=== PATIENT | female | born 1955 | race Caucasian/White ===

== ENCOUNTER 2023-01-24 17:02 | Emergency (ER) | payer OTHER ==
--- NOTE | 2023-01-24 18:25 | ED ---
General Adult HPI - General Source: RN notes reviewed <Rachel Moreira - Last Filed: 01/24/23 18:23> <Adrien Barahona - Last Filed: 01/25/23 00:51> - General Stated complaint: Rectal Bleeding Time Seen by Provider: 01/24/23 18:23 - History of Present Illness Initial comments: 67 year old female presents to the emergency department with a chief complaint of LLQ abdominal pain with sudden onset today. Also reports to "blood in her rectal area." Denies anticoagulant use (Rachel Moreira) Dictation was produced using [employer] dictation software. please excuse any grammatical, word or spelling errors. Chief Complaint: 67-year-old female with history of hypertension COPD presents the ER for left lower quadrant abdominal pain History of Present Illness: Patient is 67-year-old female she has no significant comorbidities she has history of appendectomy. Patient is currently a resident at [facility] detox facility. 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 Patient has been having left lower quadrant abdominal pain for the last 4 days. She thought her symptoms were secondary to constipation. She had a bowel movement today however still having some symptoms. She did report to someone that she had some GI bleeding. She is not on anticoagulation medications. She denies that her stool was melanotic, red. She did feel that her stool. Dark however she did not say that it was black. Denies any lightheadedness. No fever constitutional symptoms. The ROS documented in this emergency department record has been reviewed and confirmed by me. Those systems with pertinent positive or negative responses have been documented in the HPI. All other systems are other negative and/or noncontributory. (Adrien Barahona) - Related Data Home Medications Medication Instructions Recorded Confirmed Acetaminophen [Tylenol] 650 mg PO Q4H PRN 01/24/23 01/24/23 Albuterol Nebulized [Ventolin 2.5 mg INHALATION RT-Q4H PRN 01/24/23 01/24/23 Nebulized] Atorvastatin [Lipitor] 80 mg PO DAILY@1700 01/24/23 01/24/23 Azithromycin [Zithromax Z Pack] See Taper PO DIRECTED 01/24/23 01/24/23 Buprenorphine/Naloxone 8Mg/2Mg 1 film SL BID 01/24/23 01/24/23 [Suboxone 8-2Mg Film] Gabapentin 1,200 mg PO BID 01/24/23 01/24/23 Ibuprofen [Motrin Ib] 600 mg PO Q6H PRN 01/24/23 01/24/23 Lactulose 10 - 20 gm PO BID PRN 01/24/23 01/24/23 Losartan Potassium [Cozaar] 100 mg PO DAILY 01/24/23 01/24/23 Melatonin 5 mg PO HS 01/24/23 01/24/23 Umeclidinium [place] [Incruse 1 puff INHALATION RT-DAILY 01/24/23 01/24/23 Ellipta] amLODIPine [Norvasc] 5 mg PO DAILY 01/24/23 01/24/23 buPROPion HCL [buPROPion HCL SR] 150 mg PO Q12HR 01/24/23 01/24/23 predniSONE See Taper PO DIRECTED 01/24/23 01/24/23 Allergies Allergy/AdvReac Type Severity Reaction Status Date / Time No Known Allergies Allergy Verified 01/24/23 22:35 Review of Systems ROS Other: All systems not noted in ROS Statement are negative. <Rachel Moreira - Last Filed: 01/24/23 18:23> ROS Other: All systems not noted in ROS Statement are negative. <Adrien Barahona - Last Filed: 01/25/23 00:51> ROS Statement: Those systems with pertinent positive or pertinent negative responses have been documented in the HPI. General Exam <Rachel Moreira - Last Filed: 01/24/23 18:23> <Adrien Barahona - Last Filed: 01/25/23 00:51> - General Exam Comments Initial Comments: Visual Physical Exam Vital signs reviewed General: Well-appearing, nontoxic, no acute distress. Head: Normocephalic, atraumatic Eyes: PERRLA, EOMI ENT: Airway patent Chest: Nonlabored breathing Skin: No visual rash, normal skin tone Neuro: Alert and oriented 3 Musculoskeletal: No gross abnormalities I performed the quick note portion of this exam, verbal signature Rachel Moreira PA-C (Rachel Moreira) PHYSICAL EXAM: General Impression: Alert and oriented x3, not in acute distress HEENT: Normocephalic atraumatic, extra-ocular movements intact, pupils equal and reactive to light bilaterally, mucous membranes moist. Cardiovascular: Heart regular rate and rhythm Chest: Able to complete full sentences, no retractions, no tachypnea Abdomen: abdomen soft, mild palpatory tenderness to the left lower quadrant, non-distended, no organomegaly Musculoskeletal: Pulses present and equal in all extremities, no peripheral edema Motor: no focal deficits noted Neurological: CN II-XII grossly intact, no focal motor or sensory deficits noted Skin: Intact with no visualized rashes Psych: Normal affect and mood Rectal exam: Refused (Adrien Barahona) Course Vital Signs 01/24/23 18:23 Temperature 98.2 F Pulse Rate 73 Respiratory 20 Rate Blood Pressure 148/83 O2 Sat by Pulse 97 Oximetry Medical Decision Making - Lab Data Result diagrams: 01/24/23 21:10 01/24/23 21:10 <Adrien Barahona - Last Filed: 01/25/23 00:51> - Medical Decision Making Was pt. sent in by a medical professional or institution (, PA, BUILDING TECH, urgent care, hospital, or snf...) When possible be specific @ -Sent in from [facility] facility Did you speak to anyone other than the patient for history (EMS, parent, family, police, friend...)? What history was obtained from this source @ -No Did you review nursing and triage notes (agree or disagree)? Why? @ -I reviewed and agree with nursing and triage notes Were old charts reviewed (outside hosp., previous admission, EMS record, old EKG, old radiological studies, urgent care reports/EKG's, snf records)? Report findings @ -No old charts were reviewed Differential Diagnosis (chest pain, altered mental status, abdominal pain women, abdominal pain men, vaginal bleeding, musculoskeletal, weakness, fever, dyspnea, syncope, headache, dizziness, GI bleed, back pain, seizure, CVA, palpatations, mental health)? @ -Differential Abdominal Pain Women: Appendicitis, Cholecystitis, diverticulosis, ischemic bowel, pancreatitis, hepatitis, UTI, gastroenteritis, AAA, incarcerated hernia, bowel obstruction, constipation, inflammatory bowel, hepatitis, peptic ulcer disease, splenic infarction, perforated viscus, vulvitis, ovarian torsion, PID, kidney stone, placenta abruption, this is not meant to be an all-inclusive list EKG interpreted by me (3pts min.). @ -None done X-rays interpreted by me (1pt min.). @ -None done CT interpreted by me (1pt min.). @ -CT of the abdomen and pelvis did not show any evidence of diverticulitis. U/S interpreted by me (1pt. min.). @ -None done What testing was considered but not performed or refused? (CT, X-rays, U/S, labs)? Why? @ -None What meds were considered but not given or refused? Why? @ -None Did you discuss the management of the patient with other professionals (professionals i.e. , PA, BUILDING TECH, lab, RT, psych nurse, social worker health services, entry level web developer, teacher, public information officer, director of casework department)? Give summary @ -No Was smoking cessation discussed for >3mins.? @ -No Was critical care preformed (if so, how long)? @ -No Were there social determinants of health that impacted care today? How? (Homelessness, low income, unemployed, alcoholism, drug addiction, transportation, low edu. Level, literacy, decrease access to med. care, retirement, rehab)? @ -No Was there de-escalation of care discussed even if they declined (Discuss DNR or withdrawal of care, Hospice)? DNR status @ -No What co-morbidities impacted this encounter? (DM, HTN, Smoking, COPD, CAD, Cancer, CVA, ARF, Chemo, Hep., AIDS, mental health diagnosis, sleep apnea, morbid obesity)? @ -None Was patient admitted / discharged? Hospital course, mention meds given and route, prescriptions, significant lab abnormalities, going to OR and other pertinent info. @ -67-year-old female sent in from detox facility for abdominal pain. Apparently there was concern of GI bleed. Patient not on any anticoagulation surgery. She was observed in the emergency department for 7 hours without any episodes of GI bleed. Laboratory evaluation obtained. CBC unremarkable. Hemoglobin stable. Metabolic panel within acceptable limits. Abdominal labs are negative. Computed tomography scan abdomen and pelvis was obtained for concerns of diverticulitis. There is moderate stool burden. She does have complex bilateral ovarian cyst. She also has mildly dilated biliary tree CBD. Patient does not have any symptoms of right upper quadrant abdominal pain. Denies any constitutional symptoms. Patient denies any pelvic pain. Reevaluated at bedside at 12:48 AM in stable medical condition. Exacerbation symptoms likely secondary to stool burden. Patient told of the incidental finding seen on her imaging studies advised to follow closely with primary care doctor. Patient warned of strict return precautions Undiagnosed new problem with uncertain prognosis? @ -No Drug Therapy requiring intensive monitoring for toxicity (Heparin, Nitro, Insulin, Cardizem)? @ -No Were any procedures done? @ -No Diagnosis/symptom? Acute, or Chronic, or Acute on Chronic? Uncomplicated (without systemic symptoms) or Complicated (systemic symptoms)? @ -1. Abdominal pain Side effects of treatment? @ -No Exacerbation, Progression, or Severe Exacerbation? @ -No Poses a threat to life or bodily function? How? (Chest pain, [place], [place], pneumonia, PE, COPD, DKA, ARF, appy, cholecystitis, CVA, Diverticulitis, Homicidal, Suicidal, threat to staff... and all critical care pts) @ -No (Adrien Barahona) - Lab Data Lab Results 01/24/23 01/24/23 01/24/23 Range/Units 21:10 21:10 21:44 WBC 13.3 H (3.8-10.6) k/uL RBC 5.34 (3.80-5.40) m/uL Hgb 15.7 (11.4-16.0) gm/dL Hct 48.2 H (34.0-46.0) % MCV 90.3 (80.0-100.0) fL MCH 29.5 (25.0-35.0) pg MCHC 32.7 (31.0-37.0) g/dL RDW 13.1 (11.5-15.5) % Plt Count 390 (150-450) k/uL MPV 6.9 Neutrophils % 73 % Lymphocytes % 20 % Monocytes % 4 % Eosinophils % 3 % Basophils % 0 % Neutrophils # 9.6 H (1.3-7.7) k/uL Lymphocytes # 2.6 (1.0-4.8) k/uL Monocytes # 0.5 (0-1.0) k/uL Eosinophils # 0.3 (0-0.7) k/uL Basophils # 0.0 (0-0.2) k/uL Sodium 138 (137-145) mmol/L Potassium 4.0 (3.5-5.1) mmol/L Chloride 95 L (98-107) mmol/L Carbon Dioxide 34 H (22-30) mmol/L Anion Gap 9 mmol/L BUN 21 H (7-17) mg/dL Creatinine 0.74 (0.52-1.04) mg/dL Est GFR (CKD-EPI)AfAm >90 (>60 ml/min/1.73 sqM) Est GFR (CKD-EPI)NonAf 84 (>60 ml/min/1.73 sqM) Glucose 109 H (74-99) mg/dL Plasma Lactic Acid Lion 1.0 (0.7-2.0) mmol/L Calcium 10.2 (8.4-10.2) mg/dL Total Bilirubin 0.6 (0.2-1.3) mg/dL AST 28 (14-36) U/L ALT 26 (4-34) U/L Alkaline Phosphatase 106 (38-126) U/L Total Protein 8.6 H (6.3-8.2) g/dL Albumin 4.8 (3.5-5.0) g/dL Disposition <Rachel Moreira - Last Filed: 01/24/23 18:23> Is patient prescribed a controlled substance at d/c from ED?: No Time of Disposition: 00:50 <Adrien Barahona - Last Filed: 01/25/23 00:51> Clinical Impression: Abdominal pain Disposition: HOME SELF-CARE Condition: Fair Instructions (If sedation given, give patient instructions): Abdominal Pain (ED) Additional Instructions: There were incidental finding seen on your imaging studies regular ER visit today. Below a list of incidental findings that need to be followed by your primary care doctor as soon as possible 1. slightly dilated biliary ducts and common bile duct 2. Bilateral ovarian cyst It is important to seek immediate medical attention with any severe or worsening lower abdominal pain as discussed may be a sign of ovarian torsion which can be a life-threatening issue. Referrals: None,Stated [REFERRING] - 1-2 days
[2023-01-24 21:23] LABS: Basophils % (A) 0 %; Eosinophils # (A) 0.3 k/uL (0-0.7); Eosinophils % (A) 3 %; HCT 48.2 % (34.0-46.0); HGB 15.7 gm/dL (11.4-16.0); Lymphocytes # (A) 2.6 k/uL (1.0-4.8); Lymphocytes % (A) 20 %; MCH 29.5 pg (25.0-35.0); MCHC 32.7 g/dL (31.0-37.0); MCV 90.3 fL (80.0-100.0); Mean Platelet Volume 6.9; Monocytes # (A) 0.5 k/uL (0-1.0); Monocytes % (A) 4 %; Neutrophils # (A) 9.6 k/uL (1.3-7.7); Neutrophils % (A) 73 %; Platelet Count 390 k/uL (150-450); RBC 5.34 m/uL (3.80-5.40); RDW 13.1 % (11.5-15.5); WBC 13.3 k/uL (3.8-10.6)
[2023-01-24 21:42] LABS: ALT 26 U/L (4-34); AST 28 U/L (14-36); African American GFR (CKD) >90 (>60 ml/min/1.73 sqM); Albumin 4.8 g/dL (3.5-5.0); Alkaline Phosphatase 106 U/L (38-126); Anion Gap 9 mmol/L; Blood Urea Nitrogen 21 mg/dL (7-17); Calcium 10.2 mg/dL (8.4-10.2); Carbon Dioxide 34 mmol/L (22-30); Chloride 95 mmol/L (98-107); Glucose 109 mg/dL (74-99); Non-African American GFR(CKD) 84 (>60 ml/min/1.73 sqM); Sodium 138 mmol/L (137-145); Total Bilirubin 0.6 mg/dL (0.2-1.3); Total Protein 8.6 g/dL (6.3-8.2)
--- NOTE | 2023-01-24 22:37 | CT ---
EXAM: CT Abdomen and Pelvis With Intravenous Contrast CLINICAL HISTORY: ITS.REASON CT Reason: suspect diverticulitis TECHNIQUE: Axial computed tomography images of the abdomen and pelvis with intravenous contrast. CTDI is 14.2 mGy and DLP is 569 mGy-cm. This CT exam was performed using one or more of the following dose reduction techniques: automated exposure control, adjustment of the mA and/or kV according to patient size, and/or use of iterative reconstruction technique. COMPARISON: No relevant prior studies available. FINDINGS: ABDOMEN: Liver: Dilated intrahepatic and extrahepatic biliary tree, CBD measuring 1.1 cm. No radiopaque stone. Gallbladder and bile ducts: Gallbladder is normal in appearance. Pancreas: Unremarkable. Spleen: Few small cysts in the spleen. Adrenals: Unremarkable. Kidneys and ureters: Unremarkable. No obstructing stones. No hydronephrosis. Stomach and bowel: No bowel obstruction or inflammatory changes along the GI tract. Moderate colonic stool burden. PELVIS: Appendix: No findings to suggest acute appendicitis. Bladder: Unremarkable. Reproductive: Complex multilocular cystic lesions within the adnexa bilaterally. On the right approximately 8.4 x 6.0 cm and on the left approximately 9.7 x 5.2 cm. ABDOMEN and PELVIS: Intraperitoneal space: Unremarkable. No free air. No significant fluid collection. Bones/joints: Degenerative changes in the spine. Soft tissues: Unremarkable. Vasculature: Aortobiiliac atherosclerotic calcifications. Lymph nodes: Unremarkable. IMPRESSION: 1. Complex multilocular cystic lesions within the adnexa bilaterally. Cystic ovarian malignancy the diagnosis of exclusion. 2. No bowel obstruction or inflammatory changes along the GI tract. Moderate colonic stool burden. 3. Dilated intrahepatic and extrahepatic biliary tree, CBD measuring 1.1 cm. No radiopaque stone. Could be further evaluated by MRCP.
--- NOTE | 2023-01-25 00:27 | US ---
EXAM: US Pelvis Transvaginal CLINICAL HISTORY: ITS.REASON US Reason: ovarian cyst TECHNIQUE: Real-time transvaginal pelvic ultrasound with image documentation. Transvaginal imaging was used for better evaluation of the endometrium and adnexa. COMPARISON: Reference is made to prior CT performed earlier on the same date. FINDINGS: Uterus/cervix: uterus measures 6.8 x 4.6 x 3 cm and contains a 2.8 x 2. 8 x 2.5 cm fundal fibroid. Endometrium is within normal limits. Right ovary: Several septated cyst seen within the right ovary the largest which measures 7.6 x 6.5 x 5.5 cm and demonstrates a small amount of mural nodularity. Normal blood flow. Left ovary: Left ovarian septated cyst measuring 9.2 x 7.6 x 4.7 cm. Normal blood flow. Free fluid: No free fluid. Bladder: Empty bladder which cannot be evaluated with this probe. Other findings: No evidence of torsion. IMPRESSION: Complex bilateral ovarian cysts. Recommend 6 week follow-up ultrasound to assess for resolution.
[2023-01-25 01:05] VITALS: BP 133/80; PULSE 71; RESP 16; TEMP 98.4
== END 2023-01-25 01:10 | disposition home or self-care (01) ==
LOC: EC 17:02
DX: N83.201 Unspecified ovarian cyst, right side (principal); N83.202 Unspecified ovarian cyst, left side; I10 Essential (primary) hypertension; J44.9 Chronic obstructive pulmonary disease, unspecified; Z79.51 Long term (current) use of inhaled steroids; Z79.899 Other long term (current) drug therapy
CPT/HCPCS: 99284; 36415; 80053; 83605; 85025; 93975; 76830; 74177; Q9967